=== PATIENT | male | born 1965 | race Caucasian/White ===

== ENCOUNTER 2020-11-19 10:50 | Inpatient (IN) ==
[2020-11-19] MEDS ORDERED: DECADRON INJ IVP ONE (11:12)
[2020-11-19] MEDS ORDERED: NS 1000 ML 1,000 ML IV ONE (11:12)
[2020-11-19 11:16] VITALS: BMI 30.8
--- NOTE | 2020-11-19 11:21 | DR.URIAD ---
HPI Time Seen Time Seen by Provider: 11/19/20 11:11 PCP Primary Care Physician: NONE Complaint Chief Complaint Doctors Comments: 55 y/o male reported to the ED for COVID symptoms. Pt stated that a week ago he was exposed to a family member that tested positive for COVID 19. Pt stated that since that time he has had a cough, n/v, and general chills and aches. Pt stated that he has tried Ivermectin and two days of PO steroids. Pt stated that last night he felt like he had trouble breathing d/t cough. stated she checked his O2 this am and he had an O2 sat of 89% on RA. Pt also had a fever of 102 F. Pt denied any chest pain, diarrhea, dizziness, loc, and syncope. Pt did admit to having a sore throat the past couple of days and has difficulty sleeping. Chief Complaint:: PT HERE FOR EVAL, WAS SEEN ON SAT NIGHT FOR SOB/COVID SXS, FEELING WORSE. PT STATES HE LOST SMELL/TASTE 1 WEEK AGO, O2 SATS AT HOME 89%, SISTER IS ADMITTED WITH COVID CURRENTLY. PT C/O SOB, COUGH, SORE THROAT, HEADACHE, AND BACK PAIN. COVID-19 Coronavirus risk:travel/contact w/high risk person: Yes Has patient experienced Coronavirus symptoms: Yes Coronavirus symptoms experienced: Fever, Coughing and Shortness of Breath Source History Provided: Patient and Significant Other Mode of Arrival Mode of Arrival: Ambulatory Timing Onset of Chief Complaint: 11/12/20 Quality Shortness of Breath: Moderate PMH PMH Past Medical History: No Past Medical History: Hypertension Past Surgical History: Yes Past Surgical History Comment: L ACHILLES TENDON REPAIR Family History History of Family Medical Conditions: No Family Medical History: Diabetes Mellitus and Hypertension Social History Alcohol Use: Rarely Do you use any recreational Drugs:: No Lives Where: Home Travel Risk Coronavirus risk:travel/contact w/high risk person: Yes Has patient experienced Coronavirus symptoms: Yes Coronavirus symptoms experienced: Coughing and Shortness of Breath Infectious screening Have you traveled outside the country in the last 6 months?: No Isolation: Droplet ROS Review of Systems Constitutional: Chills, Fever and Fatigue Eyes: No Symptoms Reported ENTM: Throat Pain Respiratoy: Productive Cough and Short of Breath Cardiovascular: No Symptoms Reported Gastrointestinal/Abdominal: Nausea and Vomiting Genitourinary: No Symptoms Reported Neurological: No Symptoms Reported Musculoskeletal: No Symptoms Reported Integumentary: No Symptoms Reported Hematologic/Lymphatic: No Symptoms Reported Endocrine: No Symptoms Reported Psychiatric: No Symptoms Reported All Other Systems: Reviewed and Negative PE Vital Signs Vitals: Temperature 101.9 F Pulse Rate 90 Respiratory Rate 26 Blood Pressure 118/71 O2 Sat by Pulse Oximetry 94 General Limitations: No Limitations General Appearance: Alert and In No Apparent Distress Head Head Exam: Normal Inspection Eyes Eye exam: Normal Appearance, PERRL and EOMI ENT ENT Exam: Normal Exam External Ear Exam: Normal External Inspection TM/Canal Exam: Bilateral: Normal Nose Exam: Normal Nose Exam Nasal Speculum Exam: Bilateral: Normal Mouth Exam: Normal Inspection Throat Exam: Tonsillar Erythema Neck Neck Exam: Normal Inspection Chest Chest Inspection: Normal Inspection Respiratory Respiratory Exam: Respiratory Distress (Pt had an O2 between 88% and 91% on RA when at bedside. 2 L NC was ordered after the ABG. ) Respiratory Exam: Bilateral: Rales and Lower: Rales Cardiovascular Cardiovascular Exam: Regular Rate and Normal Rhythm Abdominal Exam Abdominal Exam: Normal Inspection, Normal Bowel Sounds and Soft Extremeties Extremities Exam: Normal Inspection Back Back Exam: Normal Inspection Neurologic Neurological Exam: Alert and Oriented X3 Psychiatric Psychiatric Exam: Normal Affect and Normal Mood Skin Skin Exam: Warm, Dry, Intact and Normal Color MDM Differential Diagnosis Differential Diagnosis: Influenza A, Influenza B, Streptococcal pharyngitis, Viral pharyngitis, Pneumonia (COVID/Viral PNA vs. Bacterial PNA ) and URI COURSE Treatment Treatment: 1115: Jacoby give the pt IV NS 1 L bolus, IV decadron 4 mg and PO tylenol 1000 mg. Pt will be placed on 2L NC. 1140: ABG (without O2) PH: 7.52, PO2: 53, PCO2: 37, HCO3: 30.2. Consultation Called: 13:15 Call Returned: 13:15 Consultation Comments: Spoke to Dr. Neely who has agreed to accept the pt for COVID PNA requiring supplemental O2. ROR Labs Reviewed Result Diagrams: 11/19/20 11:30 11/19/20 11:30 Laboratory: WBC 5.7 X10^3/uL (3.6-10.0) 11/19/20 11:30 RBC 4.86 X10^6/uL (4.7-6.0) 11/19/20 11:30 Hgb 15.5 g/dL (13.5-18.0) 11/19/20 11:30 Hct 43.3 % (42.0-54.0) 11/19/20 11:30 MCV 89.2 fL (80.0-100.0) 11/19/20 11:30 MCH 31.9 pg (27.0-34.0) 11/19/20 11:30 MCHC 35.8 g/dL (33.0-35.0) H 11/19/20 11:30 RDW 12.4 % (11.6-16.5) 11/19/20 11:30 Plt Count 193 X10^3/uL (150.0-450.0) 11/19/20 11:30 MPV 7.3 fL (7.4-11.0) L 11/19/20 11:30 Neut % (Auto) 80.0 % (42.0-75.0) H 11/19/20 11:30 Lymph % (Auto) 12.8 % (21.0-51.0) L 11/19/20 11:30 [place] % (Auto) 6.3 % (0.0-13.0) 11/19/20 11:30 Eos % (Auto) 0.0 % (0.9-2.9) L 11/19/20 11:30 Baso % (Auto) 0.9 % (0.2-1.0) 11/19/20 11:30 Neut # (Auto) 4.6 x10^3/uL (2.2-4.8) 11/19/20 11:30 Lymph # (Auto) 0.7 X10^3/uL (1.3-2.9) L 11/19/20 11:30 [place] # (Auto) 0.4 x10^3/uL (0.3-0.8) 11/19/20 11:30 Eos # (Auto) 0.0 x10^3/uL (0.0-0.2) 11/19/20 11:30 Baso # (Auto) 0.1 X10^3/uL (0.0-0.1) 11/19/20 11: Absolute Nucleated RBC 0.1 /100WBC 11/19/20 11:30 D-Dimer 1.57 ug/ml (0.0-0.57) H* 11/19/20 11:30 Sample Site Rr 11/19/20 11:33 ABG pH 7.520 (7.35-7.45) H 11/19/20 11:33 ABG pCO2 37.0 mmHg (35.0-45.0) 11/19/20 11:33 ABG pO2 53.0 mmHg (80.0-100.0) L 11/19/20 11:33 ABG HCO3 30.2 mmol/L (22-26) H* 11/19/20 11:33 ABG O2 Saturation 91.0 % (90-100) 11/19/20 11:33 ABG Base Excess 7.0 mmol/L (-2.0-2.0) H 11/19/20 11:33 Naveen Test Pos 11/19/20 11:33 A-a Gradient 50.0 mmHg 11/19/20 11:33 FiO2 21.0 11/19/20 11:33 Blood Gas Comments Pt igor well cdn 11/19/20 11:33 Sodium 134 mmol/L (136-145) L 11/19/20 11:30 Corrected Sodium 135 mmol/L (136-145) L 11/19/20 11:30 Potassium 3.8 mmol/L (3.5-5.1) 11/19/20 11:30 Chloride 98 mmol/L (98-107) 11/19/20 11:30 Carbon Dioxide 29.6 mmol/L (21-32) 11/19/20 11:30 BUN 12 mg/dL (7-18) 11/19/20 11:30 Creatinine 1.23 mg/dL (0.70-1.30) 11/19/20 11:30 Est GFR (MDRD) Af Amer > 60 (>60) 11/19/20 11:30 Est GFR (MDRD) Non-Af > 60 (>60) 11/19/20 11:30 Glucose 122 mg/dL (65-99) H 11/19/20 11:30 Lactic Acid 1.2 mmol/L (0.4-2.0) 11/19/20 11:30 Calcium 8.9 mg/dL (8.5-10.1) 11/19/20 11:30 Ferritin 2945 ng/mL (26-388) H 11/19/20 11:30 SARS-CoV-2 (PCR) Positive (NEGATIVE) A 11/19/20 11:20 Influenza Type A (PCR) Negative (NEGATIVE) 11/19/20 11:20 Influenza Type B (PCR) Negative (NEGATIVE) 11/19/20 11:20 RSV (PCR) Negative (NEGATIVE) 11/19/20 11:20 S. pyogenes (TEM-PCR) Not detected (NOT DETECT) 11/19/20 11:20 XRAY XRAY Interpreted by: Radiologist X-ray Results: Probable moderate bilateral COVID-19 pneumonia. Opioid Opioid Risk Tool Age (Carlos box if 16-45): No Total: 0 Total Score Risk Category: Low Risk Copyright: Raza ARECHIGA predicting aberrant behaviors
[2020-11-19] MEDS ORDERED: TYLENOL 500 MG TAB EXTRA STRENGTH PO ONE ×2 (11:24→11:30)
[2020-11-19] MEDS ORDERED: DECADRON INJ ONE (11:24)
[2020-11-19] MEDS ORDERED: NS 1000 ML 1,000 ML ONE (11:25)
[2020-11-19 11:39] LABS: ABG ALLEN TEST POS; ABG HCO3 30.2 mmol/L (22-26)
[2020-11-19 11:48] LABS: BASOPHILS # (AUTO) 0.1 X10^3/uL (0.0-0.1); BASOPHILS % (AUTO) 0.9 % (0.2-1.0); HEMATOCRIT 43.3 % (42.0-54.0); HEMOGLOBIN 15.5 g/dL (13.5-18.0); LYMPHOCYTES # (AUTO) 0.7 X10^3/uL (1.3-2.9); LYMPHOCYTES % (AUTO) 12.8 % (21.0-51.0); MEAN CORPUSCULAR HEMOGLOBIN 31.9 pg (27.0-34.0); MEAN CORPUSCULAR HGB CONC 35.8 g/dL (33.0-35.0); MEAN CORPUSCULAR VOLUME 89.2 fL (80.0-100.0); MEAN PLATELET VOLUME 7.3 fL (7.4-11.0); MONOCYTES # (AUTO) 0.4 x10^3/uL (0.3-0.8); MONOCYTES % (AUTO) 6.3 % (0.0-13.0); NEUTROPHILS # (AUTO) 4.6 x10^3/uL (2.2-4.8); PLATELET COUNT 193 X10^3/uL (150.0-450.0); RED BLOOD COUNT 4.86 X10^6/uL (4.7-6.0); RED CELL DISTRIBUTION WIDTH 12.4 % (11.6-16.5); WHITE BLOOD COUNT 5.7 X10^3/uL (3.6-10.0)
[2020-11-19 11:53] LABS: BLOOD UREA NITROGEN 12 mg/dL (7-18); CALCIUM 8.9 mg/dL (8.5-10.1); CARBON DIOXIDE 29.6 mmol/L (21-32); CHLORIDE 98 mmol/L (98-107); COR NA(FOR HYPERGLY) 135 mmol/L (136-145); CREATININE 1.23 mg/dL (0.70-1.30); SODIUM 134 mmol/L (136-145); eGFR NON BLACK RACES > 60 (>60)
[2020-11-19 12:07] LABS: STREP A BY PCR NOT DETECTED (NOT DETECT)
[2020-11-19 12:07] LABS: LACTIC ACID 1.2 mmol/L (0.4-2.0)
--- NOTE | 2020-11-19 12:12 | RAD ---
HISTORYCOUGH, COVID 19 +STUDYCHEST x-ray, 1 VIEWCOMPARISONX-ray 11/16/2020FINDINGSModerate bilateral lung infiltrates are likely due to COVID-19 pneumonia. Findings have worsened since prior study. Heart is normal in size. No pneumothorax or pleural effusion is seen.IMPRESSIONProbable moderate bilateral COVID-19 pneumonia.Electronically signed by: Wes Vazquez (Nov 19, 2020 12:10:11)
[2020-11-19] MEDS ORDERED: DUONEB 0.5 MG/3 MG (3 mL) NEB ONE (15:07)
[2020-11-19] MEDS ORDERED: TUSSIONEX PENNKINETIC SUSP PO PRN (15:10)
[2020-11-19] MEDS ORDERED: REMDESIVIR 200 MG in NS 250 ML IV 250 ML IV NR (15:10)
[2020-11-19] MEDS ORDERED: NS 100 ML IV 100 ML ONE (15:21)
[2020-11-19] MEDS: TESSALON PERLES PO SCH ×2 (15:42→21:13)
[2020-11-19] MEDS: ASCORBIC ACID INJ MULTI-DOSE VIAL 1,500 MG in NS 50 ML IV 50 ML IV SCH ×2 (15:42→21:12)
[2020-11-19] MEDS: SOLU-Medrol 125 MG VIAL IVP SCH ×2 (15:43→21:12)
[2020-11-19] MEDS: NS 1000 ML 1,000 ML IV SCH (15:44)
[2020-11-19 15:54] LABS: CREATINE KINASE MB 1.6 ng/mL (0-4.0); TROPONIN I < 0.02 ng/mL (0-1.5)
[2020-11-19 15:58] LABS: CKMB % 0.1 % (<4)
[2020-11-19 16:00] LABS: CREATINE KINASE 1154 Units/L (39-308)
[2020-11-19] MEDS: MUCOMYST 20% 200 MG/ML NEB SCH ×2 (16:03→21:10)
[2020-11-19] MEDS: DUONEB 0.5 MG/3 MG (3 mL) NEB SCH ×2 (16:03→21:10)
[2020-11-19] MEDS ORDERED: DUONEB 0.5 MG/3 MG (3 mL) NEB SCH (17:00)
[2020-11-19] MEDS ORDERED: ACCUNEB 1.25 MG NEBULE NEB SCH (17:00)
[2020-11-19] MEDS ORDERED: PULMICORT NEB TX 0.5 MG NEB SCH (21:00)
[2020-11-19] MEDS: PULMICORT NEB TX 0.5 MG NEB SCH (21:10)
[2020-11-19] MEDS: SINGULAIR TAB 10 MG PO SCH (21:12)
[2020-11-19] MEDS: MELATONIN PO SCH (21:12)
[2020-11-19 22:35] LABS: BILIRUBIN,URINE NEGATIVE (NEGATIVE); BLOOD/HEMOGLOBIN,URINE 2+ (NEGATIVE); GLUCOSE, URINE NEGATIVE (NEGATIVE); KETONES,URINE NEGATIVE (NEGATIVE); LEUKOCYTE ESTERASE ,URINE NEGATIVE (NEGATIVE); NITRITES,URINE NEGATIVE (NEGATIVE); PROTEIN,URINE 2+ (NEGATIVE); UROBILINOGEN,URINE NORMAL (NORMAL)
[2020-11-19 23:22] LABS: APPEARANCE,URINE CLEAR (CLEAR); COLOR,URINE YELLOW (YELLOW)
[2020-11-19 23:23] LABS: BACTERIA,URINE TRACE /HPF (NEGATIVE); MUCUS,URINE FEW /HPF (NEGATIVE); RBC,URINE 0-2 /HPF (0-3); SQUAMOUS EPITHELIAL CELL,UR RARE /HPF (NEGATIVE)
[2020-11-20] MEDS: DUONEB 0.5 MG/3 MG (3 mL) NEB SCH ×6 (00:30→20:24)
[2020-11-20] MEDS: SOLU-Medrol 125 MG VIAL IVP SCH ×4 (03:30→21:44)
[2020-11-20] MEDS: ASCORBIC ACID INJ MULTI-DOSE VIAL 1,500 MG in NS 50 ML IV 50 ML IV SCH ×4 (03:30→21:44)
[2020-11-20 05:46] LABS: ABG BASE EXCESS 1.8 mmol/L (-2.0-2.0); ABG HCO3 25.7 mmol/L (22-26)
[2020-11-20 05:47] LABS: ABG ALLEN TEST POS
[2020-11-20 06:03] LABS: BASOPHILS % (AUTO) 0.3 % (0.2-1.0); HEMATOCRIT 39.9 % (42.0-54.0); HEMOGLOBIN 14.3 g/dL (13.5-18.0); LYMPHOCYTES # (AUTO) 0.7 X10^3/uL (1.3-2.9); LYMPHOCYTES % (AUTO) 11.9 % (21.0-51.0); MEAN CORPUSCULAR HEMOGLOBIN 32.2 pg (27.0-34.0); MEAN CORPUSCULAR HGB CONC 35.8 g/dL (33.0-35.0); MEAN CORPUSCULAR VOLUME 90.1 fL (80.0-100.0); MEAN PLATELET VOLUME 7.4 fL (7.4-11.0); MONOCYTES # (AUTO) 0.2 x10^3/uL (0.3-0.8); MONOCYTES % (AUTO) 4.5 % (0.0-13.0); NEUTROPHILS # (AUTO) 4.6 x10^3/uL (2.2-4.8); NEUTROPHILS % (AUTO) 83.3 % (42.0-75.0); PLATELET COUNT 237 X10^3/uL (150.0-450.0); RED BLOOD COUNT 4.43 X10^6/uL (4.7-6.0); RED CELL DISTRIBUTION WIDTH 12.4 % (11.6-16.5); WHITE BLOOD COUNT 5.5 X10^3/uL (3.6-10.0)
[2020-11-20] MEDS: TESSALON PERLES PO SCH ×3 (06:30→21:44)
[2020-11-20] MEDS: NS 1000 ML 1,000 ML IV SCH ×2 (06:30→17:39)
[2020-11-20 06:44] LABS: ALANINE AMINOTRANSFERASE 46 Units/L (12-78); ALBUMIN 2.8 g/dL (3.4-5.0); ALKALINE PHOSPHATASE 59 Units/L (46-116); ASPARTATE AMINO TRANSFERASE 58 Units/L (15-37); BLOOD UREA NITROGEN 18 mg/dL (7-18); CALCIUM 8.5 mg/dL (8.5-10.1); CARBON DIOXIDE 26.6 mmol/L (21-32); CHLORIDE 102 mmol/L (98-107); COR CA(FOR HYPOALB) 9.5 mg/dL (8.5-10.1); COR NA(FOR HYPERGLY) 143 mmol/L (136-145); SODIUM 140 mmol/L (136-145); TOTAL PROTEIN 6.9 g/dL (6.4-8.2); eGFR NON BLACK RACES 56 (>60)
--- NOTE | 2020-11-20 08:19 | CT ---
EXAM: CTA CHEST WITH INTRAVENOUS CONTRASTHISTORY: Shortness of breath. COVID-19 positive. Elevated D-dimer.TECHNIQUE: Spiral axial CT images are obtained through the chest with the administration of 75 cc of Omnipaque 350 intravenous contrast. Coronal, sagittal and 3D MIP images are reformatted.DOSIMETRY: Total DLP 378.14 mGycm; CTDI 24.22 mGyCOMPARISON: None available.FINDINGS:CARDIOVASCULAR: There is no evidence for pulmonary embolic disease. There is approximately 5.2 cm aneurysmal dilatation of the ascending thoracic aorta; no dissection or rupture is seen. The heart size is within normal limits. No pericardial effusion is seen.MEDIASTINUM AND RANDI: There is shotty bilateral hilar and mediastinal lymphadenopathy in keeping with reactive lymphadenopathy. No mass lesion, emphysema, or abnormal fluid collection is seen.LUNGS: There are extensive bilateral patchy groundglass parenchymal infiltrates in keeping with acute Covid pneumonia in the appropriate clinical setting; nonspecific finding; DDx includes airspace disease (with filling of alveoli, e.g. with fluid, pus, hemorrhage, or tumor cells) and interstitial lung disease (e.g. interstitial edema, interstitial pneumonia, and interstitial fibrosis). Clinical correlation is advised. Correlation with a high resolution noncontrast chest CT may be beneficial. There is no lung mass, lung nodule, or endobronchial obstructing lesion seen. No pleural effusion or pneumothorax is evident.CHEST WALL: There are no chest wall lesions seen. The visualized bony structures are within normal limits. No axillary lymphadenopathy is noted.UPPER ABDOMEN: Limited views through the upper abdomen demonstrate no gross acute abnormality. Status post cholecystectomy.IMPRESSION:1. Extensive bilateral patchy groundglass parenchymal infiltrates in keeping with acute Covid pneumonia in the appropriate clinical setting.2. Shotty mediastinal and bilateral hilar lymphadenopathy in keeping with reactive lymphadenopathy.3. No evidence for pulmonary embolic disease seen.4. Approximately 5.2 cm aneurysmal dilatation of the ascending thoracic aorta; no dissection or rupture is seen.5. No lung mass, endobronchial obstructing lesion, pleural effusion, or pneumothorax seen.Electronically signed by: Lexi Weaver (Nov 19, 2020 16:08:01)
--- NOTE | 2020-11-20 08:33 | RAD ---
HISTORYpneumonia, COVID-19STUDYCHEST x-ray, 1 VIEWCOMPARISONX-ray 11/19/2020FINDINGSPeripheral patchy lung infiltrates are unchanged. Heart is likely normal in size. No pneumothorax or pleural effusion is seen.IMPRESSIONNo change in likely bilateral pneumonia.Electronically signed by: Wes Vazquez (Nov 20, 2020 08:31:33)
[2020-11-20] MEDS: REMDESIVIR 100 MG in NS 250 ML IV 250 ML IV SCH (08:44)
[2020-11-20] MEDS: ZyrTEC TAB 10 MG PO SCH (08:45)
[2020-11-20] MEDS: ZINC SULFATE PO SCH (08:45)
[2020-11-20] MEDS: VITAMIN D3 125 mcg (5,000 UNITS) PO SCH (08:45)
[2020-11-20] MEDS: PULMICORT NEB TX 0.5 MG NEB SCH ×2 (08:58→20:24)
[2020-11-20] MEDS: MUCOMYST 20% 200 MG/ML NEB SCH ×4 (08:58→20:24)
[2020-11-20] MEDS: PROTONIX INJ 40 MG VIAL IVP SCH (09:00)
[2020-11-20] MEDS ORDERED: TYLENOL 325 MG TAB PO PRN (15:16)
[2020-11-20] MEDS ORDERED: TYLENOL 325 MG TAB PO ONE (15:18)
[2020-11-20] MEDS ORDERED: NYSTATIN SUSP ONE (17:41)
[2020-11-20] MEDS: NYSTATIN SUSP PO SCH ×2 (17:47→21:44)
--- NOTE | 2020-11-20 18:16 | DR.H&P ---
H&P - History & Physical for Day of: H&P Date: 11/19/20 - Chief Complaint Chief Complaint: FEVER, COVID+, CCC - History of Present Illness History of Present Illness: 55 y/o male reported to the ED for COVID symptoms. Pt stated that a week ago he was exposed to a family member that tested positive for COVID 19. Pt stated that since that time he has had a cough, n/v, and general chills and aches. Pt stated that he has tried Ivermectin and two days of PO steroids. Pt stated that last night he felt like he had trouble breathing d/t cough. stated she checked his O2 this am and he had an O2 sat of 89% on RA. Pt also had a fever of 102 F. Pt denied any chest pain, diarrhea, dizziness, loc, and syncope. Pt did admit to having a sore throat the past couple of days and has difficulty sleeping. Pt had CTA on admission revealing bilateral pneumonia. - Past Medical History Past Medical History: Hypertension - Past Surgical History Surgical History: Ortho Surgery - Family History Family Medical History: Cancer, Coronary Artery Disease, Hypertension - Social History Does patient currently use any type of tobacco product: No Have you used tobacco products in the last 12 months: No Type of Tobacco Use: None Does any household member use tobacco: No Alcohol Use: Occasionally Drug Use: None - Medications Home Medications: Sulfa (Sulfonamide Antibiotics) Allergy (Verified 11/19/20 10:57) CONTINUE taking the following medications NK 11/19/20 [History] - Review of Systems Constitutional: Weakness Eyes: No Symptoms Reported ENT: No Symptoms Reported Respiratory: Cough, Shortness of Breath, SOB with Excertion, Sputum, Wheezing Cardiovascular: No Symptoms Reported, Edema Gastrointestinal: Nausea Genitourinary: No Symptoms Reported Musculoskeletal: No Symptoms Reported Skin: No Symptoms Reported Neurological: No Symptoms Reported - Physical Exam Vital Signs: Temperature 98.1 F Pulse Rate [Right Brachial] 80 Pulse Rate 104 Respiratory Rate 33 Blood Pressure [Right Arm] 132/66 Blood Pressure 113/62 O2 Sat by Pulse Oximetry 92 Oriented: Normal Eyes: Normal Ear: Normal Nose: Normal Throat: Dry Respiratory: RLL Diminished, LLL Diminished Cardiovascular: Normal : Normal Auscultation: Bowel Sounds: Normal Palpation: Normal Tenderness: Normal Skin: Normal Musculoskeletal: Normal Psychiatric: Anxiety Affect: Anxious Speech Pattern: Clear, Appropriate - Assessment/Plan (1) Pneumonia due to COVID-19 virus Status: Acute Plan: ADMIT, ICU ISOLATION. CTA CHEST ON ADMISSION RO PE, IV REMDESIVIR, IV SOLU MEDROL. ADMISSION LABS RESP THERAPY, SUPPLEMENTAL O2. CARDIAC PROFILE, EKG. DVT PREVENTION, SPUTUM CULTURE (2) Hypoxia Status: Acute (3) Hypertension Status: Acute - Allergies Allergies/Adverse Reactions: Allergies Allergy/AdvReac Type Severity Reaction Status Date / Time Sulfa (Sulfonamide Allergy Verified 11/19/20 10:57 Antibiotics)
[2020-11-20] MEDS ORDERED: ROBITUSSIN DM PO SCH (19:00)
[2020-11-20] MEDS: ZITHROMAX INJ 500 MG VIAL 500 MG in NS 250 ML IV 250 ML IV SCH (19:50)
[2020-11-20] MEDS: MELATONIN PO SCH (21:44)
[2020-11-20] MEDS: SINGULAIR TAB 10 MG PO SCH (21:44)
[2020-11-21] MEDS: DUONEB 0.5 MG/3 MG (3 mL) NEB SCH ×6 (00:51→21:25)
[2020-11-21] MEDS: ASCORBIC ACID INJ MULTI-DOSE VIAL 1,500 MG in NS 50 ML IV 50 ML IV SCH ×4 (03:55→21:00)
[2020-11-21] MEDS: SOLU-Medrol 125 MG VIAL IVP SCH ×4 (03:55→21:01)
[2020-11-21 05:30] LABS: BASOPHILS % (AUTO) 0.1 % (0.2-1.0); HEMATOCRIT 40.6 % (42.0-54.0); HEMOGLOBIN 14.3 g/dL (13.5-18.0); LYMPHOCYTES # (AUTO) 0.6 X10^3/uL (1.3-2.9); LYMPHOCYTES % (AUTO) 4.5 % (21.0-51.0); MEAN CORPUSCULAR HEMOGLOBIN 31.6 pg (27.0-34.0); MEAN CORPUSCULAR HGB CONC 35.2 g/dL (33.0-35.0); MEAN CORPUSCULAR VOLUME 89.7 fL (80.0-100.0); MEAN PLATELET VOLUME 7.4 fL (7.4-11.0); MONOCYTES # (AUTO) 0.7 x10^3/uL (0.3-0.8); MONOCYTES % (AUTO) 5.2 % (0.0-13.0); NEUTROPHILS # (AUTO) 12.9 x10^3/uL (2.2-4.8); NEUTROPHILS % (AUTO) 90.2 % (42.0-75.0); PLATELET COUNT 351 X10^3/uL (150.0-450.0); RED BLOOD COUNT 4.53 X10^6/uL (4.7-6.0); RED CELL DISTRIBUTION WIDTH 12.7 % (11.6-16.5); WHITE BLOOD COUNT 14.3 X10^3/uL (3.6-10.0)
[2020-11-21 05:38] LABS: ABG BASE EXCESS 2.8 mmol/L (-2.0-2.0); ABG HCO3 25.9 mmol/L (22-26)
[2020-11-21 05:39] LABS: ABG ALLEN TEST POS
[2020-11-21 06:05] LABS: ALANINE AMINOTRANSFERASE 46 Units/L (12-78); ALBUMIN 2.8 g/dL (3.4-5.0); ALKALINE PHOSPHATASE 55 Units/L (46-116); ASPARTATE AMINO TRANSFERASE 57 Units/L (15-37); BLOOD UREA NITROGEN 16 mg/dL (7-18); CALCIUM 8.6 mg/dL (8.5-10.1); CARBON DIOXIDE 23.3 mmol/L (21-32); CHLORIDE 103 mmol/L (98-107); CKMB % 0.5 % (<4); COR CA(FOR HYPOALB) 9.6 mg/dL (8.5-10.1); COR NA(FOR HYPERGLY) 140 mmol/L (136-145); CREATINE KINASE 955 Units/L (39-308); CREATININE 1.27 mg/dL (0.70-1.30); SODIUM 139 mmol/L (136-145); TOTAL PROTEIN 6.6 g/dL (6.4-8.2); TROPONIN I 0.05 ng/mL (0-1.5); eGFR NON BLACK RACES > 60 (>60)
[2020-11-21 06:06] LABS: CREATINE KINASE MB 4.7 ng/mL (0-4.0)
[2020-11-21] MEDS: NS 1000 ML 1,000 ML IV SCH ×2 (06:14→19:57)
[2020-11-21 06:15] LABS: PLATELET MORPHOLOGY COMMENT NORMAL (NORMAL)
--- NOTE | 2020-11-21 08:02 | RAD ---
HISTORYFollow-up pneumoniaSTUDYChest AP [id number]/2021FINDINGSHeart is enlarged. No congestive heart failure is noted. Bilatera l patchy airspace disease is present and not significantly different in degree or distribution from t he prior examination and most consistent with multifocal pneumonia. No pleural effusions are identifi ed. Bony thorax is unremarkable.IMPRESSIONNo change bilateral multifocal pneumonia when compared to t he prior examinationMild cardiomegaly without congestive heart failureElectronically signed by: MARY CASTAÑEDA (Nov 21, 2020 07:59:48)
[2020-11-21] MEDS: MUCOMYST 20% 200 MG/ML NEB SCH ×4 (08:19→21:25)
[2020-11-21] MEDS: PULMICORT NEB TX 0.5 MG NEB SCH ×2 (08:19→21:25)
[2020-11-21] MEDS: NYSTATIN SUSP PO SCH ×4 (10:06→21:01)
[2020-11-21] MEDS: PROTONIX INJ 40 MG VIAL IVP SCH (10:06)
[2020-11-21] MEDS: REMDESIVIR 100 MG in NS 250 ML IV 250 ML IV SCH (10:06)
[2020-11-21] MEDS: ZyrTEC TAB 10 MG PO SCH (10:07)
[2020-11-21] MEDS: VITAMIN D3 125 mcg (5,000 UNITS) PO SCH (10:07)
[2020-11-21] MEDS: ZINC SULFATE PO SCH (10:07)
[2020-11-21] MEDS: ZITHROMAX INJ 500 MG VIAL 500 MG in NS 250 ML IV 250 ML IV SCH (10:07)
[2020-11-21] MEDS: ZOSYN VIAL 3.375 GRAMS 3.375 G in NS 100 ML IV + SPIKE MINIBAG* 100 ML IV SCH ×3 (10:10→21:02)
[2020-11-21] MEDS: LOVENOX INJ 40 MG SYR SC SCH (10:13)
[2020-11-21 11:34] LABS: CKMB % 0.6 % (<4); TROPONIN I 0.03 ng/mL (0-1.5)
[2020-11-21 11:43] LABS: CREATINE KINASE MB 5.5 ng/mL (0-4.0)
[2020-11-21] MEDS ORDERED: BENADRYL INJ 50 MG VIAL IV PRN (13:28)
[2020-11-21] MEDS: ROBITUSSIN DM PO SCH ×2 (16:15→21:01)
[2020-11-21 17:17] LABS: CKMB % 0.8 % (<4); TROPONIN I 0.03 ng/mL (0-1.5)
[2020-11-21 17:18] LABS: CREATINE KINASE MB 6.9 ng/mL (0-4.0)
[2020-11-21] MEDS: SINGULAIR TAB 10 MG PO SCH (21:01)
[2020-11-21] MEDS: MELATONIN PO SCH (21:01)
[2020-11-21] MEDS: TESSALON PERLES PO SCH (21:02)
[2020-11-21 22:50] LABS: CKMB % 0.8 % (<4); TROPONIN I 0.04 ng/mL (0-1.5)
[2020-11-21 22:51] LABS: CREATINE KINASE MB 7.1 ng/mL (0-4.0)
[2020-11-22] MEDS: DUONEB 0.5 MG/3 MG (3 mL) NEB SCH ×6 (00:55→20:45)
[2020-11-22] MEDS: ASCORBIC ACID INJ MULTI-DOSE VIAL 1,500 MG in NS 50 ML IV 50 ML IV SCH ×4 (03:45→20:16)
[2020-11-22] MEDS: SOLU-Medrol 125 MG VIAL IVP SCH ×4 (03:45→20:17)
[2020-11-22] MEDS: NS 1000 ML 1,000 ML IV SCH ×3 (04:28→20:40)
[2020-11-22] MEDS: ZOSYN VIAL 3.375 GRAMS 3.375 G in NS 100 ML IV + SPIKE MINIBAG* 100 ML IV SCH ×3 (05:15→21:05)
[2020-11-22 05:35] LABS: BASOPHILS % (AUTO) 0.1 % (0.2-1.0); HEMATOCRIT 38.5 % (42.0-54.0); HEMOGLOBIN 13.8 g/dL (13.5-18.0); LYMPHOCYTES # (AUTO) 0.6 X10^3/uL (1.3-2.9); LYMPHOCYTES % (AUTO) 4.8 % (21.0-51.0); MEAN CORPUSCULAR HEMOGLOBIN 32.1 pg (27.0-34.0); MEAN CORPUSCULAR HGB CONC 35.8 g/dL (33.0-35.0); MEAN CORPUSCULAR VOLUME 89.5 fL (80.0-100.0); MEAN PLATELET VOLUME 7.1 fL (7.4-11.0); MONOCYTES # (AUTO) 0.8 x10^3/uL (0.3-0.8); MONOCYTES % (AUTO) 6.5 % (0.0-13.0); NEUTROPHILS # (AUTO) 10.4 x10^3/uL (2.2-4.8); NEUTROPHILS % (AUTO) 88.6 % (42.0-75.0); PLATELET COUNT 385 X10^3/uL (150.0-450.0); RED CELL DISTRIBUTION WIDTH 12.9 % (11.6-16.5); WHITE BLOOD COUNT 11.8 X10^3/uL (3.6-10.0)
[2020-11-22 06:03] LABS: ABG BASE EXCESS 4.8 mmol/L (-2.0-2.0); ABG HCO3 28.1 mmol/L (22-26)
[2020-11-22 06:06] LABS: ALANINE AMINOTRANSFERASE 65 Units/L (12-78); ALBUMIN 2.6 g/dL (3.4-5.0); ALKALINE PHOSPHATASE 58 Units/L (46-116); ASPARTATE AMINO TRANSFERASE 64 Units/L (15-37); BLOOD UREA NITROGEN 19 mg/dL (7-18); CALCIUM 8.1 mg/dL (8.5-10.1); CARBON DIOXIDE 26.5 mmol/L (21-32); CHLORIDE 107 mmol/L (98-107); COR CA(FOR HYPOALB) 9.2 mg/dL (8.5-10.1); COR NA(FOR HYPERGLY) 144 mmol/L (136-145); CREATINE KINASE 910 Units/L (39-308); CREATININE 1.19 mg/dL (0.70-1.30); SODIUM 143 mmol/L (136-145); TOTAL PROTEIN 6.2 g/dL (6.4-8.2); TROPONIN I 0.04 ng/mL (0-1.5); eGFR NON BLACK RACES > 60 (>60)
[2020-11-22 06:53] LABS: CKMB % 0.8 % (<4)
[2020-11-22 06:55] LABS: CREATINE KINASE MB 7.3 ng/mL (0-4.0)
--- NOTE | 2020-11-22 07:40 | RAD ---
HISTORYFollow-up pneumoniaSTUDYChest AP [id number]/15/2021FINDINGSHypo inflation accentuates the heart size. It is likely still enlarged. Bilateral patchy and now some confluent airspace disease is identified increasing when compared with the prior examination. Findings would seem most consistent with multifocal pneumonia. No pleural effusions are identified. Bony thorax is unremarkable.IMPRESSIONIncreasing bilateral alveolar infiltrates now with some confluence and most likely due to multifocal pneumoniaElectronically signed by: MIKE CASTAÑEDA (Nov 22, 2020 07:38:21)
[2020-11-22] MEDS: MUCOMYST 20% 200 MG/ML NEB SCH ×4 (09:03→20:45)
[2020-11-22] MEDS: PULMICORT NEB TX 0.5 MG NEB SCH ×2 (09:03→20:45)
[2020-11-22] MEDS: NYSTATIN SUSP PO SCH ×4 (09:42→20:26)
[2020-11-22] MEDS: ZITHROMAX INJ 500 MG VIAL 500 MG in NS 250 ML IV 250 ML IV SCH (09:42)
[2020-11-22] MEDS: ZyrTEC TAB 10 MG PO SCH (09:43)
[2020-11-22] MEDS: VITAMIN D3 125 mcg (5,000 UNITS) PO SCH (09:43)
[2020-11-22] MEDS: PROTONIX INJ 40 MG VIAL IVP SCH (09:44)
[2020-11-22] MEDS: LOVENOX INJ 40 MG SYR SC SCH (09:44)
[2020-11-22] MEDS: ZINC SULFATE PO SCH (09:45)
[2020-11-22] MEDS: ROBITUSSIN DM PO SCH ×4 (09:45→20:27)
[2020-11-22] MEDS: REMDESIVIR 100 MG in NS 250 ML IV 250 ML IV SCH (09:46)
[2020-11-22] MEDS ORDERED: NS 50 ML IV 50 ML IV ONE (10:13)
[2020-11-22] MEDS: TESSALON PERLES PO SCH (20:19)
[2020-11-22] MEDS: SINGULAIR TAB 10 MG PO SCH (20:19)
[2020-11-22] MEDS: MELATONIN PO SCH (20:19)
[2020-11-23] MEDS: DUONEB 0.5 MG/3 MG (3 mL) NEB SCH ×8 (00:28→21:10)
[2020-11-23] MEDS: ASCORBIC ACID INJ MULTI-DOSE VIAL 1,500 MG in NS 50 ML IV 50 ML IV SCH ×4 (02:00→20:30)
[2020-11-23] MEDS: SOLU-Medrol 125 MG VIAL IVP SCH ×3 (02:00→20:30)
[2020-11-23] MEDS: ZOSYN VIAL 3.375 GRAMS 3.375 G in NS 100 ML IV + SPIKE MINIBAG* 100 ML IV SCH ×3 (05:42→21:00)
[2020-11-23] MEDS: MUCOMYST 20% 200 MG/ML NEB SCH ×4 (08:55→21:10)
[2020-11-23] MEDS: PULMICORT NEB TX 0.5 MG NEB SCH ×2 (08:55→21:10)
[2020-11-23] MEDS: VITAMIN D3 125 mcg (5,000 UNITS) PO SCH (09:44)
[2020-11-23] MEDS: ZyrTEC TAB 10 MG PO SCH (09:44)
[2020-11-23] MEDS: PROTONIX INJ 40 MG VIAL IVP SCH (09:45)
[2020-11-23] MEDS: ZINC SULFATE PO SCH (09:45)
[2020-11-23] MEDS: ZITHROMAX INJ 500 MG VIAL 500 MG in NS 250 ML IV 250 ML IV SCH (09:46)
[2020-11-23] MEDS: ROBITUSSIN DM PO SCH ×4 (09:46→20:30)
[2020-11-23] MEDS: LOVENOX INJ 40 MG SYR SC SCH (09:46)
[2020-11-23] MEDS ORDERED: NS 100 ML IV 100 ML ONE (09:54)
[2020-11-23 10:01] LABS: ABG BASE EXCESS 2.8 mmol/L (-2.0-2.0); ABG HCO3 26.1 mmol/L (22-26)
[2020-11-23] MEDS: NYSTATIN SUSP PO SCH ×4 (10:41→21:07)
--- NOTE | 2020-11-23 12:33 | PCM.PROG ---
Progress Note Progress Note for Day of Date of Exam: 11/23/20 Subjective Subjective: Patient seen at bedside, no events overnight. He is currently on HHFNC with sats above 90%. He states his breathing is about the same. He is coughing up more now. He has been afebrile. He reports increased swelling in both legs. He did ambulate a bit in the room yesterday and also stood on the side of the bed. He had some diarrhea this morning, no nausea or vomiting. Labs: WBC 11.8 Hgb 13.8 BUN/Cr 19/1.19 Glucose 154 CRP 35.10 Trop 0.03 0.04 0.04 ABG 7.48/35/55/26 on 40% FiO2 Plan: CTA ordered due to elevated d-dimer to rule out PE. Continue current treatment with Solumedrol 60 mg q6hrs, Remdesivir, Zosyn and Azithromycin. Wean O2 as tolerated to keep sats > 88%. Continue Lovenox. Continue nebs, pulmicort and IS. Continue smart vest. Continue vitamin support. Will give Lasix prn based on CTA results. Follow cultures. Monitor am labs and imaging. Time spent for clinical assessment, reviewing labs/imaging, physical exam, decision making and documentation greater than 75 mins. Past Medical Family Social History Past Med/Fam/Surg Hx: No changes since H&P Allergies: Allergies Sulfa (Sulfonamide Antibiotics) Allergy (Verified 11/19/20 10:57) Review of Systems ROS: No change since H&P Vital Signs and I&O's Vital Signs: Temperature 98.7 F Pulse Rate [Right Brachial] 80 Pulse Rate 85 Respiratory Rate 26 Blood Pressure [Right Arm] 132/66 Blood Pressure 138/76 O2 Sat by Pulse Oximetry 92 Intake and Output: Intake & Output 11/20/20 11/21/20 11/22/20 11/23/20 23:59 23:59 23:59 23:59 Intake Total 2463 / 2463 3512 / 3512 3738 / 3738 691 / 691 Output Total 2124 / 2124 2450 / 2450 2124 / 2124 725 / 725 Balance 338 / 338 1062 / 1062 1613 / 1613 -34 / -34 Physical Exam Oriented: Normal Eyes: Normal Ear: Normal Nose: Normal Throat: Normal Respiratory: Generalized, Diminished and Rhonchi Cardiovascular: Normal and Edema (slight b/l LE edema ) Auscultation: Bowel Sounds: Normal Tenderness: Normal Skin: Normal Musculoskeletal: Normal Psychiatric: Anxiety Affect: Anxious Speech Pattern: Clear and Appropriate Laboratory and Diagnostics Result Diagrams: 11/22/20 04:50 11/22/20 04:50 Labs: 11/19/20 14:35 Sputum - Expectorated Sputum Sputum Culture - Final 11/19/20 14:35 Sputum - Expectorated Sputum - Final 11/19/20 11:35 Blood Blood Culture - Preliminary 11/19/20 11:30 Blood Blood Culture - Preliminary Laboratory WBC 11.8 X10^3/uL (3.6-10.0) H 11/22/20 04:50 RBC 4.30 X10^6/uL (4.7-6.0) L 11/22/20 04:50 Hgb 13.8 g/dL (13.5-18.0) 11/22/20 04:50 Hct 38.5 % (42.0-54.0) L 11/22/20 04:50 MCV 89.5 fL (80.0-100.0) 11/22/20 04:50 MCH 32.1 pg (27.0-34.0) 11/22/20 04:50 MCHC 35.8 g/dL (33.0-35.0) H 11/22/20 04:50 RDW 12.9 % (11.6-16.5) 11/22/20 04:50 Plt Count 385 X10^3/uL (150.0-450.0) 11/22/20 04:50 Plt Count Comment Adequate (ADEQUATE) 11/21/20 04:49 MPV 7.1 fL (7.4-11.0) L 11/22/20 04:50 Neut % (Auto) 88.6 % (42.0-75.0) H 11/22/20 04:50 Lymph % (Auto) 4.8 % (21.0-51.0) L 11/22/20 04:50 [place] % (Auto) 6.5 % (0.0-13.0) 11/22/20 04:50 Eos % (Auto) 0.0 % (0.9-2.9) L 11/22/20 04:50 Baso % (Auto) 0.1 % (0.2-1.0) L 11/22/20 04:50 Neut # (Auto) 10.4 x10^3/uL (2.2-4.8) H 11/22/20 04:50 Lymph # (Auto) 0.6 X10^3/uL (1.3-2.9) L 11/22/20 04:50 [place] # (Auto) 0.8 x10^3/uL (0.3-0.8) 11/22/20 04:50 Eos # (Auto) 0.0 x10^3/uL (0.0-0.2) 11/22/20 04:50 Baso # (Auto) 0.0 X10^3/uL (0.0-0.1) 11/22/20 04:50 Absolute Nucleated RBC 0.0 /100WBC 11/22/20 04:50 Total Counted 100 11/21/20 04:49 Neutrophils % (Manual) 91 % (39-76) H 11/21/20 04:49 Lymphocytes % (Manual) 8 % (13-43) L 11/21/20 04:49 Monocytes % (Manual) 1 % (4-9) L 11/21/20 04:49 Plt Morphology Comment Normal (NORMAL) 11/21/20 04:49 RBC Morphology Normal (NORMAL) 11/21/20 04:49 D-Dimer 1.57 ug/ml (0.0-0.57) H* 11/19/20 11:30 Sample Site Lb 11/23/20 09:55 ABG pH 7.480 (7.35-7.45) H 11/23/20 09:55 ABG pCO2 35.0 mmHg (35.0-45.0) 11/23/20 09:55 ABG pO2 55.0 mmHg (80.0-100.0) L 11/23/20 09:55 ABG HCO3 26.1 mmol/L (22-26) H 11/23/20 09:55 ABG O2 Saturation 91.0 % (90-100) 11/23/20 09:55 ABG Base Excess 2.8 mmol/L (-2.0-2.0) H 11/23/20 09:55 Naveen Test Na 11/23/20 09:55 A-a Gradient 194.0 mmHg 11/23/20 09:55 FiO2 41.0 11/23/20 09:55 Blood Gas Comments Pt igor well cdn 11/23/20 09:55 Sodium 143 mmol/L (136-145) 11/22/20 04:50 Corrected Sodium 144 mmol/L (136-145) 11/22/20 04:50 Potassium 4.0 mmol/L (3.5-5.1) 11/22/20 04:50 Chloride 107 mmol/L (98-107) 11/22/20 04:50 Carbon Dioxide 26.5 mmol/L (21-32) 11/22/20 04:50 BUN 19 mg/dL (7-18) H 11/22/20 04:50 Creatinine 1.19 mg/dL (0.70-1.30) 11/22/20 04:50 Est GFR (MDRD) Af Amer > 60 (>60) 11/22/20 04:50 Est GFR (MDRD) Non-Af > 60 (>60) 11/22/20 04:50 Glucose 154 mg/dL (65-99) H 11/22/20 04:50 Hemoglobin A1c 5.4 % 11/20/20 05:15 Lactic Acid 1.2 mmol/L (0.4-2.0) 11/19/20 11:30 Calcium 8.1 mg/dL (8.5-10.1) L 11/22/20 04:50 Corrected Calcium 9.2 mg/dL (8.5-10.1) 11/22/20 04:50 Ferritin 3016 ng/mL (26-388) H 11/19/20 15:23 Total Bilirubin 0.50 mg/dL (0.2-1.0) 11/22/20 04:50 AST 64 Units/L (15-37) H 11/22/20 04:50 ALT 65 Units/L (12-78) 11/22/20 04:50 Alkaline Phosphatase 58 Units/L (46-116) 11/22/20 04:50 Creatine Kinase 910 Units/L (39-308) H 11/22/20 04:50 CK-MB (CK-2) 7.3 ng/mL (0-4.0) H* 11/22/20 04:50 CK/CKMB % Calc 0.8 % (<4) 11/22/20 04:50 Troponin I 0.04 ng/mL (0-1.5) 11/22/20 04:50 C-Reactive Protein 35.10 mg/L (0-3.0) H 11/21/20 04:49 B-Natriuretic Peptide 45.6 pg/mL (0-79) 11/19/20 15:23 Total Protein 6.2 g/dL (6.4-8.2) L 11/22/20 04:50 Albumin 2.6 g/dL (3.4-5.0) L 11/22/20 04:50 Globulin 3.6 g/dL (2.5-4.5) 11/22/20 04:50 Albumin/Globulin Ratio 0.7 Ratio (1.1-2.1) L 11/22/20 04:50 Specimen Type Clean catch urine 11/19/20 22:04 Urine Color Yellow (YELLOW) 11/19/20 22:04 Urine Appearance Clear (CLEAR) 11/19/20 22:04 Urine pH 5.0 (5.0 - 8.0) 11/19/20 22:04 Ur Specific [place] 1.020 (1.000-1.030) 11/19/20 22:04 Urine Protein 2+ (NEGATIVE) 11/19/20 22:04 Urine Glucose (UA) Negative (NEGATIVE) 11/19/20 22:04 Urine Ketones Negative (NEGATIVE) 11/19/20 22:04 Urine Occult Blood 2+ (NEGATIVE) 11/19/20 22:04 Urine Nitrite Negative (NEGATIVE) 11/19/20 22:04 Urine Bilirubin Negative (NEGATIVE) 11/19/20 22:04 Urine Urobilinogen Normal (NORMAL) 11/19/20 22:04 Ur Leukocyte Esterase Negative (NEGATIVE) 11/19/20 22:04 Urine RBC 0-2 /HPF (0-3) 11/19/20 22:04 Urine WBC 0-2 /HPF (0-5) 11/19/20 22:04 Ur Squamous Epith Cells Rare /HPF (NEGATIVE) 11/19/20 22:04 Urine Bacteria Trace /HPF (NEGATIVE) 11/19/20 22:04 Urine Mucus Few /HPF (NEGATIVE) 11/19/20 22:04 Ur Culture Indicated? No/not indicated 11/19/20 22:04 SARS-CoV-2 (PCR) Positive (NEGATIVE) A 11/19/20 11:20 Influenza Type A (PCR) Negative (NEGATIVE) 11/19/20 11:20 Influenza Type B (PCR) Negative (NEGATIVE) 11/19/20 11:20 RSV (PCR) Negative (NEGATIVE) 11/19/20 11:20 S. pyogenes (TEM-PCR) Not detected (NOT DETECT) 11/19/20 11:20 Blood Type O POSITIVE 11/22/20 14:03 Plan (1) Acute respiratory failure with hypoxia: Status: Acute (2) Pneumonia due to COVID-19 virus: Status: Acute Plan: ADMIT, ICU ISOLATION CTA CHEST ON ADMISSION RO PE, IV REMDESIVIR, IV SOLU MEDROL ADMISSION LABS RESP THERAPY, SUPPLEMENTAL O2 CARDIAC PROFILE, EKG DVT PREVENTION, SPUTUM CULTURE (3) Hypoxia: Status: Acute (4) Hypertension: Status: Acute Qualifiers: Hypertension type: unspecified Qualified Code(s): I10 - Essential (primary) hypertension
--- NOTE | 2020-11-23 12:33 | CT ---
HISTORY:COVID-19 pneumonia, elevated D-dimer, hypoxiaStudy: CTA chestComparison:CT 11/19/2020Technique: Multiple axial images of the chest were obtained after the administration of IV contrast. 3D reconstructions were performed utilizing radial maximum intensity projection imaging. Dose reduction techniques including Automated Exposure Control (AEC) and adjustment of mA and kV were utilized.Findings:Contrast opacification of the pulmonary arteries is adequate to the level of the segmental branches. No evidence of acute pulmonary emboli . Normal appearance of the heart and pericardium. There is a 5 centimeter ascending thoracic aortic aneurysm. Multifocal bilateral ground-glass infiltrates with slight interval progression from prior. No effusion or pneumothorax. Airways are patient.The soft tissues and osseous structures appear intact . The visualized portions of the upper abdomen are grossly unremarkable. There is a small sliding hiatal hernia.IMPRESSION:Mild progression of bilateral multifocal pneumonia compatible with provided history of COVID-19.Ascending thoracic aortic aneurysm measuring 5 centimeters. Cardiovascular follow-up recommended.No acute pulmonary embolism.Electronically signed by: IVONNE MCKEON (Nov 23, 2020 12:30:50)
[2020-11-23] MEDS ORDERED: LASIX IVP ONE (12:51)
[2020-11-23 13:34] LABS: BASOPHILS # (AUTO) 0.1 X10^3/uL (0.0-0.1); BASOPHILS % (AUTO) 0.5 % (0.2-1.0); HEMATOCRIT 39.6 % (42.0-54.0); HEMOGLOBIN 14.1 g/dL (13.5-18.0); LYMPHOCYTES # (AUTO) 0.9 X10^3/uL (1.3-2.9); LYMPHOCYTES % (AUTO) 7.4 % (21.0-51.0); MEAN CORPUSCULAR HEMOGLOBIN 32.1 pg (27.0-34.0); MEAN CORPUSCULAR HGB CONC 35.6 g/dL (33.0-35.0); MEAN CORPUSCULAR VOLUME 90.2 fL (80.0-100.0); MEAN PLATELET VOLUME 6.9 fL (7.4-11.0); MONOCYTES # (AUTO) 0.9 x10^3/uL (0.3-0.8); MONOCYTES % (AUTO) 7.9 % (0.0-13.0); NEUTROPHILS % (AUTO) 84.2 % (42.0-75.0); PLATELET COUNT 422 X10^3/uL (150.0-450.0); RED BLOOD COUNT 4.39 X10^6/uL (4.7-6.0); RED CELL DISTRIBUTION WIDTH 12.7 % (11.6-16.5); WHITE BLOOD COUNT 11.9 X10^3/uL (3.6-10.0)
[2020-11-23 13:54] LABS: ALANINE AMINOTRANSFERASE 71 Units/L (12-78); ALBUMIN 2.6 g/dL (3.4-5.0); ALKALINE PHOSPHATASE 74 Units/L (46-116); ASPARTATE AMINO TRANSFERASE 52 Units/L (15-37); BLOOD UREA NITROGEN 21 mg/dL (7-18); CALCIUM 7.7 mg/dL (8.5-10.1); CARBON DIOXIDE 27.7 mmol/L (21-32); CHLORIDE 106 mmol/L (98-107); CKMB % 1.2 % (<4); COR CA(FOR HYPOALB) 8.8 mg/dL (8.5-10.1); COR NA(FOR HYPERGLY) 143 mmol/L (136-145); CREATINE KINASE 781 Units/L (39-308); CREATININE 1.15 mg/dL (0.70-1.30); SODIUM 142 mmol/L (136-145); TOTAL PROTEIN 6.3 g/dL (6.4-8.2); TROPONIN I 0.02 ng/mL (0-1.5); eGFR NON BLACK RACES > 60 (>60)
[2020-11-23 13:58] LABS: CREATINE KINASE MB 9.3 ng/mL (0-4.0)
[2020-11-23 14:03] LABS: PLATELET MORPHOLOGY COMMENT NORMAL (NORMAL)
[2020-11-23] MEDS ORDERED: NS 50 ML IV 50 ML IV ONE (14:08)
[2020-11-23] MEDS: NS 1000 ML 1,000 ML IV SCH ×2 (19:15→23:17)
[2020-11-23] MEDS: SINGULAIR TAB 10 MG PO SCH (20:30)
[2020-11-23] MEDS: TESSALON PERLES PO SCH (20:30)
[2020-11-23] MEDS: MELATONIN PO SCH (20:30)
[2020-11-24] MEDS: DUONEB 0.5 MG/3 MG (3 mL) NEB SCH ×6 (00:55→21:00)
[2020-11-24] MEDS: ASCORBIC ACID INJ MULTI-DOSE VIAL 1,500 MG in NS 50 ML IV 50 ML IV SCH ×4 (03:45→20:15)
[2020-11-24] MEDS: SOLU-Medrol 125 MG VIAL IVP SCH ×4 (03:45→20:15)
[2020-11-24 05:57] LABS: BASOPHILS % (AUTO) 0.1 % (0.2-1.0); HEMATOCRIT 38.7 % (42.0-54.0); HEMOGLOBIN 13.9 g/dL (13.5-18.0); LYMPHOCYTES # (AUTO) 0.8 X10^3/uL (1.3-2.9); LYMPHOCYTES % (AUTO) 8.6 % (21.0-51.0); MEAN CORPUSCULAR HEMOGLOBIN 32.3 pg (27.0-34.0); MEAN CORPUSCULAR VOLUME 89.8 fL (80.0-100.0); MEAN PLATELET VOLUME 7.1 fL (7.4-11.0); MONOCYTES # (AUTO) 0.7 x10^3/uL (0.3-0.8); MONOCYTES % (AUTO) 7.7 % (0.0-13.0); NEUTROPHILS # (AUTO) 7.9 x10^3/uL (2.2-4.8); NEUTROPHILS % (AUTO) 83.6 % (42.0-75.0); PLATELET COUNT 468 X10^3/uL (150.0-450.0); RED BLOOD COUNT 4.31 X10^6/uL (4.7-6.0); RED CELL DISTRIBUTION WIDTH 12.7 % (11.6-16.5); WHITE BLOOD COUNT 9.4 X10^3/uL (3.6-10.0)
[2020-11-24 06:07] LABS: ALANINE AMINOTRANSFERASE 69 Units/L (12-78); ALBUMIN 2.5 g/dL (3.4-5.0); ALKALINE PHOSPHATASE 68 Units/L (46-116); ASPARTATE AMINO TRANSFERASE 45 Units/L (15-37); BLOOD UREA NITROGEN 21 mg/dL (7-18); CALCIUM 7.7 mg/dL (8.5-10.1); CARBON DIOXIDE 29.6 mmol/L (21-32); CHLORIDE 105 mmol/L (98-107); COR CA(FOR HYPOALB) 8.9 mg/dL (8.5-10.1); COR NA(FOR HYPERGLY) 145 mmol/L (136-145); CREATININE 1.25 mg/dL (0.70-1.30); SODIUM 142 mmol/L (136-145); eGFR NON BLACK RACES > 60 (>60)
[2020-11-24] MEDS: ZOSYN VIAL 3.375 GRAMS 3.375 G in NS 100 ML IV + SPIKE MINIBAG* 100 ML IV SCH ×3 (06:21→21:09)
[2020-11-24] MEDS: LOVENOX INJ 40 MG SYR SC SCH (08:07)
[2020-11-24] MEDS: ZITHROMAX INJ 500 MG VIAL 500 MG in NS 250 ML IV 250 ML IV SCH (08:08)
[2020-11-24] MEDS: ZINC SULFATE PO SCH (08:08)
[2020-11-24] MEDS: ZyrTEC TAB 10 MG PO SCH (08:08)
[2020-11-24] MEDS: PROTONIX INJ 40 MG VIAL IVP SCH (08:08)
[2020-11-24] MEDS: NYSTATIN SUSP PO SCH ×4 (08:09→20:32)
[2020-11-24] MEDS: VITAMIN D3 125 mcg (5,000 UNITS) PO SCH (08:09)
[2020-11-24] MEDS: ROBITUSSIN DM PO SCH ×4 (08:09→20:15)
[2020-11-24] MEDS: MUCOMYST 20% 200 MG/ML NEB SCH ×4 (08:40→21:00)
[2020-11-24] MEDS: PULMICORT NEB TX 0.5 MG NEB SCH ×2 (08:40→21:00)
[2020-11-24] MEDS: NS 1000 ML 1,000 ML IV SCH (11:36)
--- NOTE | 2020-11-24 11:41 | PCM.PROG ---
Progress Note Progress Note for Day of Date of Exam: 11/24/20 Subjective Subjective: Patient seen at bedside, no overnight events. Patient states he feels better. He is currently on 4L NC. He was transitioned back to nasal cannula this morning. He is still coughing a good amount. Denies N/V/D or abdominal pain. He has bee afebrile. His sats have remained above 90%. He has be en ambulating in the room. His leg swelling is slightly better after the Lasix. Labs: WBC 9.4 Hgb 13.9 BUN/Cr 21/1.25 Glucose 154 CRP 8.10 Trop 0.02 ABG 7.48/35/55/26 on 40% FiO2 CTA 11/23/20: no PE, slight progression of multifocal bilateral pneumonia. Ascending thoracic aneurysm measuring 5cm. Sputum: normal esperanza Blood Cx: no growth Plan: Will give one more dose of Lasix today. Continue current treatment with Solumedrol 60 mg q6hrs, Remdesivir, Zosyn and Azithromycin. Wean O2 as tolerated to keep sats > 88%. Continue Lovenox. Continue nebs, pulmicort and IS. Continue smart vest. Continue vitamin support. Follow cultures. Monitor am labs and imaging. Time spent for clinical assessment, reviewing labs/imaging, physical exam, decision making and documentation greater than 75 mins. Past Medical Family Social History Past Med/Fam/Surg Hx: No changes since H&P Allergies: Allergies Sulfa (Sulfonamide Antibiotics) Allergy (Verified 11/19/20 10:57) Review of Systems ROS: No change since H&P Vital Signs and I&O's Vital Signs: Temperature 98.0 F Pulse Rate [Right Brachial] 80 Pulse Rate 86 Respiratory Rate 25 Blood Pressure [Right Arm] 132/66 Blood Pressure 138/88 O2 Sat by Pulse Oximetry 91 Intake and Output: Intake & Output 11/21/20 11/22/20 11/23/20 11/24/20 23:59 23:59 23:59 23:59 Intake Total 3512 / 3512 3738 / 3738 3373 / 3373 315 / 315 Output Total 2450 / 2450 2125 / 2125 3550 / 3550 450 / 450 Balance 1062 / 1062 1613 / 1613 -177 / -177 -135 / -135 Physical Exam Oriented: Normal Eyes: Normal Ear: Normal Nose: Normal Throat: Normal Respiratory: Generalized and Diminished (improved air entry ) Cardiovascular: Normal and Edema (LE edema improved ) Auscultation: Bowel Sounds: Normal Tenderness: Normal Skin: Normal Musculoskeletal: Normal Psychiatric: Normal Mood Description: Flat Affect: Normal Speech Pattern: Clear and Appropriate Laboratory and Diagnostics Result Diagrams: 11/24/20 05:31 11/24/20 05:31 Labs: 11/19/20 14:35 Sputum - Expectorated Sputum Sputum Culture - Final 11/19/20 14:35 Sputum - Expectorated Sputum - Final 11/19/20 11:35 Blood Blood Culture - Preliminary 11/19/20 11:30 Blood Blood Culture - Preliminary Laboratory WBC 9.4 X10^3/uL (3.6-10.0) 11/24/20 05:31 RBC 4.31 X10^6/uL (4.7-6.0) L 11/24/20 05:31 Hgb 13.9 g/dL (13.5-18.0) 11/24/20 05:31 Hct 38.7 % (42.0-54.0) L 11/24/20 05:31 MCV 89.8 fL (80.0-100.0) 11/24/20 05:31 MCH 32.3 pg (27.0-34.0) 11/24/20 05:31 MCHC 36.0 g/dL (33.0-35.0) H 11/24/20 05:31 RDW 12.7 % (11.6-16.5) 11/24/20 05:31 Plt Count 468 X10^3/uL (150.0-450.0) H 11/24/20 05:31 Plt Count Comment Adequate (ADEQUATE) 11/23/20 13:00 MPV 7.1 fL (7.4-11.0) L 11/24/20 05:31 Neut % (Auto) 83.6 % (42.0-75.0) H 11/24/20 05:31 Lymph % (Auto) 8.6 % (21.0-51.0) L 11/24/20 05:31 Twiggs % (Auto) 7.7 % (0.0-13.0) 11/24/20 05:31 Eos % (Auto) 0.0 % (0.9-2.9) L 11/24/20 05:31 Baso % (Auto) 0.1 % (0.2-1.0) L 11/24/20 05:31 Neut # (Auto) 7.9 x10^3/uL (2.2-4.8) H 11/24/20 05:31 Lymph # (Auto) 0.8 X10^3/uL (1.3-2.9) L 11/24/20 05:31 Twiggs # (Auto) 0.7 x10^3/uL (0.3-0.8) 11/24/20 05:31 Eos # (Auto) 0.0 x10^3/uL (0.0-0.2) 11/24/20 05:31 Baso # (Auto) 0.0 X10^3/uL (0.0-0.1) 11/24/20 05:31 Absolute Nucleated RBC 0.0 /100WBC 11/24/20 05:31 Total Counted 100 11/23/20 13:00 Neutrophils % (Manual) 91 % (39-76) H 11/23/20 13:00 Lymphocytes % (Manual) 5 % (13-43) L 11/23/20 13:00 Monocytes % (Manual) 4 % (4-9) 11/23/20 13:00 Plt Morphology Comment Normal (NORMAL) 11/23/20 13:00 RBC Morphology Normal (NORMAL) 11/23/20 13:00 D-Dimer 1.57 ug/ml (0.0-0.57) H* 11/19/20 11:30 Sample Site Lb 11/23/20 09:55 ABG pH 7.480 (7.35-7.45) H 11/23/20 09:55 ABG pCO2 35.0 mmHg (35.0-45.0) 11/23/20 09:55 ABG pO2 55.0 mmHg (80.0-100.0) L 11/23/20 09:55 ABG HCO3 26.1 mmol/L (22-26) H 11/23/20 09:55 ABG O2 Saturation 91.0 % (90-100) 11/23/20 09:55 ABG Base Excess 2.8 mmol/L (-2.0-2.0) H 11/23/20 09:55 Naveen Test Na 11/23/20 09:55 A-a Gradient 194.0 mmHg 11/23/20 09:55 FiO2 41.0 11/23/20 09:55 Blood Gas Comments Pt igor well cdn 11/23/20 09:55 Sodium 142 mmol/L (136-145) 11/24/20 05:31 Corrected Sodium 145 mmol/L (136-145) 11/24/20 05:31 Potassium 3.5 mmol/L (3.5-5.1) 11/24/20 05:31 Chloride 105 mmol/L (98-107) 11/24/20 05:31 Carbon Dioxide 29.6 mmol/L (21-32) 11/24/20 05:31 BUN 21 mg/dL (7-18) H 11/24/20 05:31 Creatinine 1.25 mg/dL (0.70-1.30) 11/24/20 05:31 Est GFR (MDRD) Af Amer > 60 (>60) 11/24/20 05:31 Est GFR (MDRD) Non-Af > 60 (>60) 11/24/20 05:31 Glucose 206 mg/dL (65-99) H 11/24/20 05:31 Hemoglobin A1c 5.4 % 11/20/20 05:15 Lactic Acid 1.2 mmol/L (0.4-2.0) 11/19/20 11:30 Calcium 7.7 mg/dL (8.5-10.1) L 11/24/20 05:31 Corrected Calcium 8.9 mg/dL (8.5-10.1) 11/24/20 05:31 Ferritin 3016 ng/mL (26-388) H 11/19/20 15:23 Total Bilirubin 0.60 mg/dL (0.2-1.0) 11/24/20 05:31 AST 45 Units/L (15-37) H 11/24/20 05:31 ALT 69 Units/L (12-78) 11/24/20 05:31 Alkaline Phosphatase 68 Units/L (46-116) 11/24/20 05:31 Creatine Kinase 781 Units/L (39-308) H 11/23/20 13:00 CK-MB (CK-2) 9.3 ng/mL (0-4.0) H* 11/23/20 13:00 CK/CKMB % Calc 1.2 % (<4) 11/23/20 13:00 Troponin I 0.02 ng/mL (0-1.5) 11/23/20 13:00 C-Reactive Protein 8.10 mg/L (0-3.0) H 11/24/20 05:31 B-Natriuretic Peptide 45.6 pg/mL (0-79) 11/19/20 15:23 Total Protein 6.0 g/dL (6.4-8.2) L 11/24/20 05:31 Albumin 2.5 g/dL (3.4-5.0) L 11/24/20 05:31 Globulin 3.5 g/dL (2.5-4.5) 11/24/20 05:31 Albumin/Globulin Ratio 0.7 Ratio (1.1-2.1) L 11/24/20 05:31 Specimen Type Clean catch urine 11/19/20 22:04 Urine Color Yellow (YELLOW) 11/19/20 22:04 Urine Appearance Clear (CLEAR) 11/19/20 22:04 Urine pH 5.0 (5.0 - 8.0) 11/19/20 22:04 Ur Specific [place] 1.020 (1.000-1.030) 11/19/20 22:04 Urine Protein 2+ (NEGATIVE) 11/19/20 22:04 Urine Glucose (UA) Negative (NEGATIVE) 11/19/20 22:04 Urine Ketones Negative (NEGATIVE) 11/19/20 22:04 Urine Occult Blood 2+ (NEGATIVE) 11/19/20 22:04 Urine Nitrite Negative (NEGATIVE) 11/19/20 22:04 Urine Bilirubin Negative (NEGATIVE) 11/19/20 22:04 Urine Urobilinogen Normal (NORMAL) 11/19/20 22:04 Ur Leukocyte Esterase Negative (NEGATIVE) 11/19/20 22:04 Urine RBC 0-2 /HPF (0-3) 11/19/20 22:04 Urine WBC 0-2 /HPF (0-5) 11/19/20 22:04 Ur Squamous Epith Cells Rare /HPF (NEGATIVE) 11/19/20 22:04 Urine Bacteria Trace /HPF (NEGATIVE) 11/19/20 22:04 Urine Mucus Few /HPF (NEGATIVE) 11/19/20 22:04 Ur Culture Indicated? No/not indicated 11/19/20 22:04 SARS-CoV-2 (PCR) Positive (NEGATIVE) A 11/19/20 11:20 Influenza Type A (PCR) Negative (NEGATIVE) 11/19/20 11:20 Influenza Type B (PCR) Negative (NEGATIVE) 11/19/20 11:20 RSV (PCR) Negative (NEGATIVE) 11/19/20 11:20 S. pyogenes (TEM-PCR) Not detected (NOT DETECT) 11/19/20 11:20 Blood Type O POSITIVE 11/22/20 14:03 Plan (1) Acute respiratory failure with hypoxia: Status: Acute (2) Pneumonia due to COVID-19 virus: Status: Acute (3) Hypoxia: Status: Acute (4) Hypertension: Status: Acute Qualifiers: Hypertension type: unspecified Qualified Code(s): I10 - Essential (primary) hypertension (5) Thoracic ascending aortic aneurysm: Status: Acute
[2020-11-24] MEDS ORDERED: LASIX IVP ONE (11:44)
[2020-11-24] MEDS: NS 250 ML IV 250 ML IV SCH (16:44)
[2020-11-24] MEDS ORDERED: ZOSYN VIAL 3.375 GRAMS IV ONE (19:45)
[2020-11-24] MEDS ORDERED: NS 100 ML IV + SPIKE MINIBAG* 100 ML IV ONE (19:47)
[2020-11-24] MEDS: MELATONIN PO SCH (20:15)
[2020-11-24] MEDS: SINGULAIR TAB 10 MG PO SCH (20:15)
[2020-11-24] MEDS: TESSALON PERLES PO SCH (20:15)
[2020-11-25] MEDS: NS 1000 ML 1,000 ML IV SCH ×2 (03:50→13:24)
[2020-11-25] MEDS: ASCORBIC ACID INJ MULTI-DOSE VIAL 1,500 MG in NS 50 ML IV 50 ML IV SCH ×4 (04:05→20:40)
[2020-11-25] MEDS: SOLU-Medrol 125 MG VIAL IVP SCH ×4 (04:05→20:40)
[2020-11-25] MEDS: DUONEB 0.5 MG/3 MG (3 mL) NEB SCH ×6 (04:44→20:10)
[2020-11-25] MEDS: ZOSYN VIAL 3.375 GRAMS 3.375 G in NS 100 ML IV + SPIKE MINIBAG* 100 ML IV SCH ×3 (05:00→21:49)
[2020-11-25 06:23] LABS: BASOPHILS % (AUTO) 0.1 % (0.2-1.0); HEMATOCRIT 38.4 % (42.0-54.0); HEMOGLOBIN 13.7 g/dL (13.5-18.0); LYMPHOCYTES # (AUTO) 0.9 X10^3/uL (1.3-2.9); LYMPHOCYTES % (AUTO) 9.2 % (21.0-51.0); MEAN CORPUSCULAR HEMOGLOBIN 32.1 pg (27.0-34.0); MEAN CORPUSCULAR HGB CONC 35.6 g/dL (33.0-35.0); MEAN CORPUSCULAR VOLUME 90.4 fL (80.0-100.0); MEAN PLATELET VOLUME 6.9 fL (7.4-11.0); MONOCYTES # (AUTO) 0.6 x10^3/uL (0.3-0.8); MONOCYTES % (AUTO) 6.5 % (0.0-13.0); NEUTROPHILS % (AUTO) 84.2 % (42.0-75.0); PLATELET COUNT 448 X10^3/uL (150.0-450.0); RED BLOOD COUNT 4.25 X10^6/uL (4.7-6.0); RED CELL DISTRIBUTION WIDTH 12.8 % (11.6-16.5); WHITE BLOOD COUNT 9.5 X10^3/uL (3.6-10.0)
[2020-11-25 06:44] LABS: ALANINE AMINOTRANSFERASE 70 Units/L (12-78); ALBUMIN 2.5 g/dL (3.4-5.0); ALKALINE PHOSPHATASE 66 Units/L (46-116); ASPARTATE AMINO TRANSFERASE 36 Units/L (15-37); BLOOD UREA NITROGEN 17 mg/dL (7-18); CALCIUM 7.8 mg/dL (8.5-10.1); CARBON DIOXIDE 34.7 mmol/L (21-32); CHLORIDE 104 mmol/L (98-107); COR NA(FOR HYPERGLY) 147 mmol/L (136-145); CREATININE 1.19 mg/dL (0.70-1.30); SODIUM 145 mmol/L (136-145); TOTAL PROTEIN 5.9 g/dL (6.4-8.2); eGFR NON BLACK RACES > 60 (>60)
[2020-11-25] MEDS: NS 250 ML IV 250 ML IV SCH ×2 (06:53→19:52)
[2020-11-25] MEDS: PULMICORT NEB TX 0.5 MG NEB SCH ×2 (08:45→20:10)
[2020-11-25] MEDS: MUCOMYST 20% 200 MG/ML NEB SCH ×4 (08:45→20:10)
[2020-11-25] MEDS: ZITHROMAX INJ 500 MG VIAL 500 MG in NS 250 ML IV 250 ML IV SCH (09:16)
[2020-11-25] MEDS: ROBITUSSIN DM PO SCH ×4 (09:17→20:40)
[2020-11-25] MEDS: PROTONIX INJ 40 MG VIAL IVP SCH (09:17)
[2020-11-25] MEDS: NORVASC TAB 5 MG PO SCH (09:17)
[2020-11-25] MEDS: ZINC SULFATE PO SCH (09:18)
[2020-11-25] MEDS: ZyrTEC TAB 10 MG PO SCH (09:19)
[2020-11-25] MEDS: VITAMIN D3 125 mcg (5,000 UNITS) PO SCH (09:20)
[2020-11-25] MEDS: LOVENOX INJ 40 MG SYR SC SCH (09:21)
[2020-11-25] MEDS: NYSTATIN SUSP PO SCH ×4 (09:25→21:15)
--- NOTE | 2020-11-25 09:34 | RAD ---
HISTORYCOVID PNEUMONIASTUDYCHEST x-ray, 1 VIEWCOMPARISONX-ray 11/22/2020FINDINGSPossible mild improvement of bilateral lung infiltrates. Heart is likely normal in size. No pneumothorax or pleural effusion is seen.IMPRESSIONPossible improvement of bilateral pneumonia. Continued x-ray follow-up is recommended.Electronically signed by: Wes Vazquez (Nov 25, 2020 09:32:33)
[2020-11-25 10:30] LABS: ABG BASE EXCESS 8.7 mmol/L (-2.0-2.0)
[2020-11-25 10:32] LABS: ABG ALLEN TEST POST; ABG HCO3 31.3 mmol/L (22-26)
[2020-11-25] MEDS: SINGULAIR TAB 10 MG PO SCH (20:30)
[2020-11-25] MEDS: MELATONIN PO SCH (20:40)
[2020-11-25] MEDS: TESSALON PERLES PO SCH (20:40)
[2020-11-26] MEDS: DUONEB 0.5 MG/3 MG (3 mL) NEB SCH ×3 (00:17→09:52)
[2020-11-26] MEDS: NS 1000 ML 1,000 ML IV SCH (03:53)
[2020-11-26] MEDS: ASCORBIC ACID INJ MULTI-DOSE VIAL 1,500 MG in NS 50 ML IV 50 ML IV SCH ×2 (03:53→08:34)
[2020-11-26] MEDS: SOLU-Medrol 125 MG VIAL IVP SCH ×2 (03:53→08:36)
[2020-11-26] MEDS: ZOSYN VIAL 3.375 GRAMS 3.375 G in NS 100 ML IV + SPIKE MINIBAG* 100 ML IV SCH (05:07)
[2020-11-26 05:23] LABS: ABG BASE EXCESS 9.7 mmol/L (-2.0-2.0); ABG HCO3 33.5 mmol/L (22-26)
--- NOTE | 2020-11-26 06:21 | RAD ---
HISTORYFollow-up pneumoniaSTUDYChest AP [id number]/19/2021FINDINGSHeart is within normal limits in size. The tammy are normal. The r ight lung is now clear. There is minimal perihilar interstitial infiltrate on the left. No pleural ef fusions are identified. Bony thorax is unremarkable.IMPRESSIONRight lung now clearMinimal residual pe rihilar interstitial lung change on the leftElectronically signed by: MIKE CASTAÑEDA (Nov 26, 2020 06: 19:14)
[2020-11-26] MEDS: NS 250 ML IV 250 ML IV SCH (07:55)
[2020-11-26] MEDS: LOVENOX INJ 40 MG SYR SC SCH (08:34)
[2020-11-26] MEDS: PROTONIX INJ 40 MG VIAL IVP SCH (08:35)
[2020-11-26] MEDS: NORVASC TAB 5 MG PO SCH (08:35)
[2020-11-26] MEDS: ROBITUSSIN DM PO SCH (08:36)
[2020-11-26] MEDS: VITAMIN D3 125 mcg (5,000 UNITS) PO SCH (08:36)
[2020-11-26] MEDS: ZINC SULFATE PO SCH (08:36)
[2020-11-26] MEDS: ZITHROMAX INJ 500 MG VIAL 500 MG in NS 250 ML IV 250 ML IV SCH (08:37)
[2020-11-26] MEDS: ZyrTEC TAB 10 MG PO SCH (08:37)
[2020-11-26] MEDS ORDERED: K-DUR TAB 20 MEQ PO SCH (09:00)
[2020-11-26] MEDS ORDERED: LASIX IVP SCH (09:00)
[2020-11-26 09:46] LABS: BASOPHILS % (AUTO) 0.1 % (0.2-1.0); HEMOGLOBIN 14.9 g/dL (13.5-18.0); LYMPHOCYTES # (AUTO) 0.9 X10^3/uL (1.3-2.9); LYMPHOCYTES % (AUTO) 6.8 % (21.0-51.0); MEAN CORPUSCULAR HEMOGLOBIN 32.3 pg (27.0-34.0); MEAN CORPUSCULAR HGB CONC 35.4 g/dL (33.0-35.0); MEAN CORPUSCULAR VOLUME 91.2 fL (80.0-100.0); MONOCYTES # (AUTO) 0.4 x10^3/uL (0.3-0.8); NEUTROPHILS # (AUTO) 11.9 x10^3/uL (2.2-4.8); NEUTROPHILS % (AUTO) 90.1 % (42.0-75.0); PLATELET COUNT 451 X10^3/uL (150.0-450.0); RED BLOOD COUNT 4.61 X10^6/uL (4.7-6.0); RED CELL DISTRIBUTION WIDTH 12.5 % (11.6-16.5); WHITE BLOOD COUNT 13.2 X10^3/uL (3.6-10.0)
[2020-11-26] MEDS: PULMICORT NEB TX 0.5 MG NEB SCH (09:52)
[2020-11-26] MEDS: MUCOMYST 20% 200 MG/ML NEB SCH (09:52)
[2020-11-26 10:00] LABS: ALANINE AMINOTRANSFERASE 69 Units/L (12-78); ALBUMIN 2.6 g/dL (3.4-5.0); ALKALINE PHOSPHATASE 78 Units/L (46-116); ASPARTATE AMINO TRANSFERASE 34 Units/L (15-37); BLOOD UREA NITROGEN 17 mg/dL (7-18); CALCIUM 7.9 mg/dL (8.5-10.1); CARBON DIOXIDE 28.7 mmol/L (21-32); CHLORIDE 103 mmol/L (98-107); COR NA(FOR HYPERGLY) 145 mmol/L (136-145); CREATININE 1.34 mg/dL (0.70-1.30); PLATELET MORPHOLOGY COMMENT NORMAL (NORMAL); SODIUM 142 mmol/L (136-145); TOTAL PROTEIN 6.1 g/dL (6.4-8.2); eGFR NON BLACK RACES 59 (>60)
[2020-11-26 11:44] VITALS: BP 111/55
== END 2020-11-26 11:46 | disposition home or self-care (01) | DRG 177 ==
LOC: ICU 10:56 → ER 10:56 → OBSVTOIN 13:31 → ICU 14:23
PROVIDERS: ADMIT Internal Medicine; ATTEND Internal Medicine
DX: R74.8 Abnormal levels of other serum enzymes; R73.09 Other abnormal glucose; I10 Essential (primary) hypertension; U07.1 COVID-19; J12.82 Pneumonia due to coronavirus disease 2019; I71.4 Abdominal aortic aneurysm, without rupture; J96.01 Acute respiratory failure with hypoxia